=== PATIENT | male | born 1945 | race Two or more races ===

== ENCOUNTER 2019-08-17 12:08 | Emergency (ER) | payer OTHER ==
[~2019-08-17] VITALS: Ht 170.2 cm; Wt 105.2 kg
[2019-08-17 13:09] LABS: BASOPHILS % (AUTO) 0.8 % (0.0-2.0); EOSINOPHILS % (AUTO) 1.8 % (0.0-6.0); HEMATOCRIT 41 % (39-51); HEMOGLOBIN 14.1 g/dL (13.5-17.5); LYMPHOCYTES # (AUTO) 0.8 /CMM (0.8-4.8); LYMPHOCYTES % (AUTO) 13.8 % (20.0-44.0); MEAN CORPUSCULAR HGB CONC 34 g/dl (31.0-36.0); MEAN CORPUSCULAR VOLUME 90 fL (80-96); MONOCYTES # (AUTO) 0.9 /CMM (0.1-1.30); MONOCYTES % (AUTO) 15.6 % (2.0-12.0); NEUTROPHILS # (AUTO) 3.8 /CMM (1.8-8.9); PLATELET COUNT (AUTO) 245 /CMM (150-450); WHITE BLOOD COUNT (AUTO) 5.5 K/uL (4.3-11.0)
[2019-08-17 13:26] LABS: ALANINE AMINOTRANSFERASE 24 U/L (12-78); ALBUMIN 3.9 g/dL (3.4-5.0); ALKALINE PHOSPHATASE 98 U/L (46-116); ASPARTATE AMINOTRANSFERASE 13 U/L (15-37); BILIRUBIN,DIRECT 0.3 mg/dL (0.0-0.2); BILIRUBIN,TOTAL 1.5 mg/dL (0.2-1.0); CALCIUM, SERUM 9.8 mg/dL (8.5-10.1); CARBON DIOXIDE 29 mmol/L (21-32); CHLORIDE 100 mmol/L (98-107); GLUCOSE 131 mg/dL (74-106); POTASSIUM 4.1 mmol/L (3.5-5.1); SODIUM SERUM 138 mmol/L (136-145); TOTAL PROTEIN, SERUM 7.4 g/dL (6.4-8.2); UREA NITROGEN, BLOOD 18 mg/dL (7-18)
[2019-08-17] MEDS ORDERED: IV NS 0.9% 1,000 ML BAG IV ONE (13:30)
[2019-08-17 13:46] LABS: LYMPHOCYTES % (MANUAL) 13 % (16-48); MONOCYTES % (MANUAL) 16 % (0-11.0); NEUTROPHILS % (MANUAL) 71 (42-76)
[2019-08-17 14:23] LABS: APPEARANCE,URINE Clear (CLEAR); BILIRUBIN,URINE Negative (NEGATIVE); BLOOD, URINE Trace-intact Ery/uL (NEGATIVE); COLOR,URINE Yellow (YELLOW); KETONES,URINE Negative (NEGATIVE); LEUKOCYTE ESTERASE ,URINE Negative (NEGATIVE); NITRITE, URINE Negative (NEGATIVE); PH,URINE 6.5 (5.0-8.0); PROTEIN,URINE Negative (NEGATIVE); UGLUCOSE Negative (NEGATIVE); UROBILINOGEN,URINE 0.2 EU/dL (0.2)
[2019-08-17 14:31] LABS: RBC,URINE 0-2 /HPF (0-2)
[2019-08-17 14:32] LABS: BACTERIA,URINE None seen /HPF (None Seen); MUCUS,URINE Few /LPF (None Seen); SQUAMOUS EPITHELIAL CELL,UR None Seen /HPF (None Seen); WBC,URINE 0-2 /HPF (0-3)
[2019-08-17] MEDS ORDERED: PIPERACILLIN /TAZOBACTAM 3.375 G in IV D5W 50 ML IV ONE (15:00)
--- NOTE | 2019-08-17 15:13 | NUR ---
Patient awake alert non distress @ this time
[2019-08-17] MEDS ORDERED: MULT-447 PO (15:14)
[2019-08-17] MEDS ORDERED: CHOL200026 PO (15:14)
[2019-08-17] MEDS ORDERED: ONDA4TAB11 PO (15:14)
[2019-08-17] MEDS ORDERED: METO100T14 PO (15:14)
[2019-08-17] MEDS ORDERED: FLUT16SP16 NS (15:14)
[2019-08-17] MEDS ORDERED: CALC-227 PO (15:14)
[2019-08-17] MEDS ORDERED: ATOR20TA PO (15:14)
[2019-08-17] MEDS ORDERED: CLON1TAB12 PO (15:14)
[2019-08-17] MEDS ORDERED: LOSA50TA39 PO (15:14)
[2019-08-17] MEDS ORDERED: FINA5TAB4 PO (15:14)
[2019-08-17] MEDS ORDERED: ACET-868 PO (15:14)
[2019-08-17] MEDS ORDERED: LATA2.5D7 OP (15:14)
[2019-08-17] MEDS ORDERED: BUSP5TAB3 PO (15:14)
[2019-08-17] MEDS ORDERED: LORA10TA7 PO (15:14)
[2019-08-17] MEDS ORDERED: BUME1TAB8 PO (15:14)
[2019-08-17] MEDS ORDERED: ALFU10TA PO (15:14)
[2019-08-17] MEDS ORDERED: ALEN70TA3 GT (15:14)
[2019-08-17] MEDS ORDERED: ESCI10TA PO (15:14)
[2019-08-17] MEDS ORDERED: CABE0.5T2 PO (15:14)
--- NOTE | 2019-08-17 15:42 | NUR ---
PA @ bedside made plan of care for transfer
--- NOTE | 2019-08-17 16:00 | NUR ---
Wilberto murillo in [facility] - 08/17/19 at 1602 by ROSANNE JOAQUÍN VASQUEZ.
--- NOTE | 2019-08-17 16:01 | NUR ---
Patient requesting regarding insurance issue call registration front laddae saldana to the patient and noted patient to the insurance laddae
[2019-08-17 16:06] VITALS: BP 139/65
--- NOTE | 2019-08-17 16:11 | NUR ---
RECIEVED A CALL FROM ADMITTING AND PT WILL BE TRANSFERED TO [facility]. WAITING ON BED INFORMATION, ACCEPTING, AND TRANSFER ETA.
--- NOTE | 2019-08-17 16:48 | NUR ---
Wilberto murillo in ED - 08/17/[address] ANDERSON CALLED FOR
--- NOTE | 2019-08-17 16:50 | NUR ---
DR. ANDERSON FROM [facility] CALLED FOR CHRISTINA.
--- NOTE | 2019-08-17 16:59 | NUR ---
SPOKE WITH [facility] CRYSTAL REPORT DEVELOPER AND PT IS GOING TO BE SENT HOME AND GIVEN A FOLLOW UP APPOINTMENT EITHER SUNDAY OR SUNDAY THE LATEST.
--- NOTE | 2019-08-17 17:31 | NUR ---
Pa @ bedside DC home instruction given agrees to call pmd in 2 days and prescription given assisted patient to WC and to patients car .Patient agrees to pharmacy picking tech meds patient denies pain noted no sob lungs clear 97 RA
--- NOTE | 2019-08-17 17:33 | NUR ---
ok to have snack per PA
== END 2019-08-17 17:33 | disposition home or self-care (01) ==
LOC: ER 12:08
DX: J18.9 Pneumonia, unspecified organism (principal); N50.89 Other specified disorders of the male genital organs; R53.1 Weakness; I10 Essential (primary) hypertension; E78.00 Pure hypercholesterolemia, unspecified; K21.9 Gastro-esophageal reflux disease without esophagitis; F41.9 Anxiety disorder, unspecified; F32.9 Major depressive disorder, single episode, unspecified; M19.90 Unspecified osteoarthritis, unspecified site; Z98.890 Other specified postprocedural states; Z79.899 Other long term (current) drug therapy
CPT/HCPCS: 36415; 71045; 76705; 76870; 80048; 80076; 81001; 83605; 83735; 84145; 84484; 85025; 85730; 87040 ×2; 87081; 87086; 87804 ×2; 93005; 96365; 96366; 99284; J2543; J7060; 81000-TC; J7030